=== PATIENT | female | born 1980 | race Caucasian/White ===

== ENCOUNTER → 2016-11-28 | Outpatient (CLI) | payer SELFPAY ==
[~2016-11-28] MED LIST: DEPO PROVER150 MG/ML SUB-Q; VITAMIN D-32000 UNI1 PO; XANAX0.25 MG PO
== END | disposition disaster alternative care site (69) ==
LOC: GRAD 15:11
DX: R26.89 Other abnormalities of gait and mobility (principal); R20.0 Anesthesia of skin
CPT/HCPCS: A9577

== ENCOUNTER → 2016-12-19 | Day surgery (SDC) | payer MEDICAID, SELFPAY ==
[~2016-12-19] VITALS: Ht 170.2 cm; Wt 87.8 kg
--- NOTE | ~2016-12-19 | OR ---
PATIENT'S NAME: LUBNA GONCALVES [facility] AGE: 36 Y [address] ROOM: [place] [address] LOCATION: [facility] [place] ADMIT DATE: 12/19/2016 OR/Procedure Report DISCHARGE DATE: FAMILY PHYSICIAN: SEB MELVIN MD ATTENDING PHYSICIAN: LORENZO HORNER SURGEON: Ольга Andrew CRNA [employer] PROF[employer]: DATE OF PROCEDURE: 12/19/2016 PROCEDURE PERFORMED: Lumbar puncture. Patient of Dr. Lorenzo Horner. PREOPERATIVE DIAGNOSIS: Gait disturbance, memory changes and numbness, questioning multiple sclerosis. POSTOPERATIVE DIAGNOSIS: Gait disturbance, memory changes and numbness, questioning multiple sclerosis. DESCRIPTION OF PROCEDURE: The patient was placed in the right lateral decubitus position. The back was prepped and draped in a sterile fashion using Betadine solution. A sterile drape was placed to the back to maintain sterility. 1% lidocaine was infiltrated at the skin and subcutaneous tissues in the area of the puncture. A 24-gauge needle measuring 3.5 inches was advanced into the intrathecal space. Mild paresthesias were noted. Those were resolved with redirection. Opening pressure was obtained per physician's order. Cerebral fluid was clear. Four vials with 4 mL in each were collected while maintaining sterility. Opening pressure was 16 cm H2O, closing pressures were not obtained. The level of the puncture was L4-L5. No other levels were attempted. After specimens were collected for vial or tube 1 cell count with differential, West Nile virus, enterovirus, herpes simplex, and EBV. Tube 2 was cryptococcal antigen, Lyme, and viral culture. Tube 3 was glucose, protein, myelin, basic protein, MS panel with serum, IgG synthesis, and oligoclonal bands, and tube 4 was to hold and freeze any remaining fluids. The patient was placed in the supine position. In addition to risks and benefits, and treatment options, the potential of infection was discussed prior to the procedure. Instructions regarding signs and symptoms of postdural puncture headache were reinforced. Report was given to the registered nurse who assumed care of the patient postprocedure. The patient tolerated the procedure well. ОЛЬГА ANDREW CRNA PATIENT'S NAME: LUBNA GONCALVES [facility] AGE: 36 Y [address] ROOM: [place] [address] LOCATION: [facility] [place] ADMIT DATE: 12/19/2016 OR/Procedure Report DISCHARGE DATE: FAMILY PHYSICIAN: SEB MELVIN MD ATTENDING PHYSICIAN: LORENZO HORNER/jelena /[id number] d: 12/19/162041 t: 12/20/16 1539, OPERATIVE SUMMARY
== END | disposition disaster alternative care site (69) ==
LOC: GPOC 12-18 13:00 → GSDC 12:32 → GPOC 13:00
PROC: 009U3ZX Drainage of Spinal Canal, Percutaneous Approach, Diagnostic (ICD-10-PCS; principal; 2016-12-19)
DX: R26.89 Other abnormalities of gait and mobility (principal); G37.9 Demyelinating disease of central nervous system, unspecified; R41.3 Other amnesia; R20.0 Anesthesia of skin; Z88.1 Allergy status to other antibiotic agents; Z79.899 Other long term (current) drug therapy